=== PATIENT | male | born 2005 | race Caucasian/White ===

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

== ENCOUNTER 2024-04-14 11:39 | Emergency (ER) | payer MEDICAID ==
[~2024-04-14] VITALS: Ht 175.3 cm; Wt 120.5 kg
[2024-04-14 11:48] VITALS: TEMP 98.7
[2024-04-14 13:32] VITALS: BP 114/80; PULSE 88
== END 2024-04-14 13:35 | disposition home or self-care (01) ==
LOC: COL.ER 11:39
DX: S51.812A Laceration without foreign body of left forearm, initial encounter (principal); Z23 Encounter for immunization; W26.0XXA Contact with knife, initial encounter